=== PATIENT | female | born 1960 | race Caucasian/White ===

== ENCOUNTER 2021-04-02 17:14 | Outpatient (REF) | payer BC, SELFPAY ==
[2021-04-02 22:04] LABS: HCT 36.3 % (36.0-46.0); HGB 11.6 g/dL (11.2-15.7); MCH 28.7 pg (27.0-33.0); MCV 89.9 fL (80-95); MPV 9.7 fL (8.0-11.0); Platelet Count 194 10^3/uL (130-400); RBC 4.04 10^6/uL (3.93-5.22); RDW 12.2 % (11.7-14.6); RDW-SD 40.3 fL; WBC 5.75 10^3/uL (4.4-10.8)
[2021-04-02 22:19] LABS: Hemoglobin A1C 5.1 % (<5.7)
[2021-04-02 22:40] LABS: BUN 16 mg/dL (7-18); CREATININE 0.6 mg/dL (0.55-1.02); Calcium 9.1 mg/dL (8.5-10.1); Chloride 102 mmol/L (98-107); Glucose 86 mg/dL (74-106); Potassium 4.2 mmol/L (3.5-5.1); Sodium 140 mmol/L (136-145)
[2021-04-02 22:53] LABS: Calculated LDL 94 mg/dL (<100); Cholesterol 184 mg/dL (<200); HDL Cholesterol 74 mg/dL (40-60); Triglyceride 82 mg/dL (<150)
== END 2021-04-02 17:15 | disposition home or self-care (01) ==
LOC: NCHCN 17:14
PROVIDERS: PCP Family Medicine; Visit Provider Family Medicine
DX: D64.9 Anemia, unspecified (principal); Z00.00 Encounter for general adult medical examination without abnormal findings; Z13.1 Encounter for screening for diabetes mellitus; Z13.220 Encounter for screening for lipoid disorders
CPT/HCPCS: 80048; 80061; 85027; 83036

== ENCOUNTER 2023-03-30 14:49 | Outpatient (REF) | payer BC, SELFPAY ==
--- NOTE | 2023-03-30 14:30 | PAPFT_PTH ---
PATIENT: Viviana Osborn LOC: [facility] U#:[id number] AGE/SX: 63/F ROOM: RE03/30/[address]: Ramila Culver : 1960 BED: DIS: 03/30/2023 SPEC #: [id number] RECD: 03/31/23 12:56 STATUS: HOMAR REJosé Luis #: [id number] SIRENA: 03/30/23 14:[address]: Ramila Culver DEPT: [facility] Cytology RECD BY: Adilia Erickson Tissues: 1 - CX/ENDOCX FOR PAP SMEARS Procedures: PAP THIN PREP/[facility] Screening HPV DNA PROBE Comments: [id number]
== END 2023-03-30 14:50 | disposition home or self-care (01) ==
LOC: NCHCN 14:49
PROVIDERS: PCP Family Medicine; Visit Provider Family Medicine
DX: Z12.4 Encounter for screening for malignant neoplasm of cervix (principal); R87.610 Atypical squamous cells of undetermined significance on cytologic smear of cervix (ASC-US); Z11.51 Encounter for screening for human papillomavirus (HPV); Z00.00 Encounter for general adult medical examination without abnormal findings
CPT/HCPCS: 88142; 87624

== ENCOUNTER 2024-03-31 21:12 | Outpatient (REF) | payer BC, SELFPAY ==
--- NOTE | 2024-03-31 14:20 | PAPFT_PTH ---
PATIENT: Viviana Osborn LOC: [facility] U#:[id number] AGE/SX: 64/F ROOM: RE03/31/[address]: Ramila Culver : 1960 BED: DIS: 03/31/2024 SPEC #: [id number] RECD: 04/03/24 18:10 STATUS: HOMAR REJosé Luis #: [id number] SIRENA: 03/31/24 14:[address]: Ramila Culver DEPT: [facility] Cytology RECD BY: Adilia Erickson Tissues: 1 - CX/ENDOCX FOR PAP SMEARS Procedures: PAP THIN PREP/[facility] Screening HPV DNA PROBE Comments: [id number]
[2024-03-31 21:40] LABS: Calculated LDL 95 mg/dL (<100); Cholesterol 175 mg/dL (<200); HDL Cholesterol 55 mg/dL (40-60); Triglyceride 126 mg/dL (<150)
[2024-03-31 21:43] LABS: Hemoglobin A1C 5.6 % (<5.7)
[2024-03-31 22:01] LABS: Vitamin D 25 Total 47.4 ng/mL (30-100)
== END 2024-03-31 21:13 | disposition home or self-care (01) ==
LOC: LBN 21:12
PROVIDERS: PCP Family Medicine; Visit Provider Family Medicine
DX: Z12.4 Encounter for screening for malignant neoplasm of cervix; M81.0 Age-related osteoporosis without current pathological fracture; Z13.220 Encounter for screening for lipoid disorders; Z00.00 Encounter for general adult medical examination without abnormal findings
CPT/HCPCS: 80061; 82306; 88142; 83036; 87624